=== PATIENT | female | born 1980 | race Caucasian/White ===

== ENCOUNTER 2018-07-19 17:20 | Emergency (ER) | payer BC, SELFPAY ==
[~2018-07-19 17:20] MED LIST: ISOVUE-370 76%-LOCM 1 ML ONE
[2018-07-19] MEDS ORDERED: Ketorolac Tromethamine 30 MG/ML VIAL ONE (17:38)
[2018-07-19] MEDS ORDERED: Lorazepam 2 MG/ML VIAL ONE (17:38)
[2018-07-19 17:40] LABS: #Basophils 0.1 thou/uL (0.0-0.2); #Eosinphils 0.4 thou/uL (0.0-0.7); #Lymphocytes 5.5 thou/uL (1.20-3.40); #Monocytes 0.6 thou/uL (0.11-0.59); #Neutrophils 5.3 thou/uL (1.40-6.50); %Basophils 0.6 % (0.0-1.0); %Lymphocytes 46.2 % (21.0-51.0); %Monocytes 5.4 % (0.0-10.0); %Neutrophils 44.8 % (42.0-75.0); Hemoglobin 13.8 g/dL (12.0-16.0); Mean Corpuscular HGB CONC 34.5 g/dL (32.0-36.0); Mean Corpuscular Hemoglobin 32.3 pg (27.0-31.0); Mean Corpuscular Volume 93.7 fL (78.0-98.0); Mean Platelet Volume 8.2 fL (7.4-10.4); Platelet Count 295 thou/uL (130-400); RBC Distribution Width 12.2 % (11.5-14.5); Red Blood Cell (RBC) Count 4.29 mill/uL (4.20-5.40); White Blood Cell (WBC) Count 11.9 thou/uL (4.8-10.8)
[2018-07-19 18:03] LABS: ALT (SGPT) 69 U/L (8-55); AST (SGOT) 45 U/L (5-34); Albumin 4.6 g/dL (3.5-5.0); Alkaline Phosphatase 76 U/L (40-150); Anion Gap 14 mmol/L (10-20); BUN (Urea Nitrogen) 7 mg/dL (7.0-18.7); Bilirubin, Total 0.4 mg/dL (0.2-1.2); Calc. Creatinine Clearance 0 mL/min (70-130); Calcium 9.5 mg/dL (7.8-10.44); Carbon Dioxide 25 mmol/L (22-29); Chloride 102 mmol/L (98-107); Estimated GFR-MDRD 82; Glucose 86 mg/dL (70-105); Lipase 27 U/L (8-78); Potassium 3.8 mmol/L (3.5-5.1); Protein, Total 7.6 g/dL (6.0-8.3); Sodium 137 mmol/L (136-145)
[2018-07-19 18:06] LABS: Troponin I Less than 0.010 ng/mL (< 0.028)
--- NOTE | 2018-07-19 18:55 | RAD ---
AP VIEW CHEST: 07/19/2018 HISTORY: Chest pain. FINDINGS: AP view chest demonstrates the lungs to be well aerated. No evidence of active intrathoracic disease is seen. No evidence of effusions, pneumonia, or pneumothorax is seen. IMPRESSION: Unremarkable anterior-posterior view chest. POS: [facility]
--- NOTE | 2018-07-19 19:27 | CT ---
CT AORTIC DISSECTION PROTOCOL: HISTORY: This is a 37-year-old who presents with a history of acute chest pain, left side, for 45 minutes, ass ociated with left arm movement. TECHNIQUE: A contrast enhanced CTA of the thoracic and abdominal aorta were obtained, and 2D and 3D reconstructe d images were performed on an independent 3D work station. FINDINGS: Images demonstrate the lung parenchyma to be unremarkable. The aortic arch is unremarkable. The ascending and descending thoracic aorta is unremarkable. The a bdominal aorta is unremarkable. The right and left subclavian arteries are patent. No evidence of lung parenchymal lesions seen. No evidence of mediastinal, hilar, or axillary lymphadenopathy is seen. Hepatic steatosis is present. The spleen, pancreas, and gallbladder are unremarkable. The adrenal g lands are unremarkable. The kidneys are within normal limits. The SMA, celiac, and renal arteries are patent. IMPRESSION: Unremarkable CTA aorta. POS: [facility]
[2018-07-19 19:32] LABS: Bilirubin Negative (Negative); Blood, Urine Negative (Negative); Clarity CLEAR (Clear); Glucose, Urine (Dipstick) Negative (Negative); Leukocyte Negative (Negative); Nitrite Negative (Negative); Protein, Urine (Dipstick) Negative (Neg-Trace); Specific Gravity, Urine 1.037 (1.002-1.036); Urobilinogen 0.2 mg/dL (0.2-1.0)
[2018-07-19 19:43] LABS: Amphetamine Not Detected (NotDetected); Barbiturates Screen Not Detected (NotDetected); Benzodiazepine Screen Not Detected (NotDetected); Cocaine Metabolite Screen Not Detected (NotDetected); Medtox Control Line Valid? VALID (VALID); Medtox Reader # READER 4; Methadone Not Detected (NotDetected); Methamphetamine Not Detected (NotDetected); Opiate Screen Not Detected (NotDetected); Oxycodone Screen Not Detected (NotDetected); Phencyclidine (PCP) Not Detected (NotDetected); THC/Cannabinoid Screen Not Detected (NotDetected); Tricyclic Screen Not Detected (NotDetected)
[2018-07-19 19:43] LABS: Acetaminophen Less than 6.0 mcg/mL (10.0-30.0); Alcohol Less than 10 mg/dL (Less than 10); CK (CPK) 82 U/L (29-168); Salicylate Less than 8.0 mg/dL (15.0-30.0)
--- NOTE | 2018-07-24 11:46 | EKG ---
Test Reason : CHEST PAIN Blood Pressure : / mmHG Vent. Rate : 081 BPM Atrial Rate : 081 BPM P-R Int : 124 ms QRS Dur : 090 ms QT Int : 376 ms P-R-T Axes : 020 021 032 degrees QTc Int : 436 ms Normal sinus rhythm Normal ECG Confirmed by LAURENT LEE DO ([id number]), editorial clerk MURALI TUCKER ([id number]) on 07/24/2018 11:46:35 AM Referred By: JALEESA LEE Confirmed By:LAURENT LEE DO
== END 2018-07-19 20:15 | disposition home or self-care (01) ==
LOC: ERS 17:20
DX: R07.89 Other chest pain (principal); J45.909 Unspecified asthma, uncomplicated; I10 Essential (primary) hypertension; F41.9 Anxiety disorder, unspecified; F32.9 Major depressive disorder, single episode, unspecified; Z87.891 Personal history of nicotine dependence; Z79.899 Other long term (current) drug therapy
CPT/HCPCS: 71045; 71275; 80053; 80306; 80307; 81003; 82553; 83690; 83880; 84484; 85025; 93005; 96361; 96374; 96375; J1885; J2060

== ENCOUNTER 2018-12-03 09:59 | Emergency (ER) | payer OTHER ==
[2018-12-03 10:41] LABS: Bilirubin Negative (Negative); Blood, Urine Small (Negative); Clarity CLOUDY (Clear); Glucose, Urine (Dipstick) Negative (Negative); Leukocyte Negative (Negative); Nitrite Negative (Negative); Protein, Urine (Dipstick) Negative (Neg-Trace); Specific Gravity, Urine 1.013 (1.002-1.036); Urobilinogen 0.2 mg/dL (0.2-1.0)
[2018-12-03 10:43] LABS: Bacteria/HPF Rare-Few HPF (None Seen); Hyaline Casts/LPF 4-6 HYALINE CAST LPF (0-3 Hyaline); Pathc Cast-AUWi Flag 1.74 (0-2.49)
[2018-12-03 11:05] LABS: #Basophils 0.1 thou/uL (0.0-0.2); #Eosinphils 0.1 thou/uL (0.0-0.7); #Lymphocytes 3.9 thou/uL (1.20-3.40); #Monocytes 0.6 thou/uL (0.11-0.59); #Neutrophils 8.2 thou/uL (1.40-6.50); %Basophils 0.6 % (0.0-1.0); %Eosinophils 0.6 % (0.0-10.0); %Lymphocytes 30.1 % (21.0-51.0); %Neutrophils 63.7 % (42.0-75.0); Hemoglobin 15.3 g/dL (12.0-16.0); Mean Corpuscular HGB CONC 33.7 g/dL (32.0-36.0); Mean Corpuscular Hemoglobin 31.9 pg (27.0-31.0); Mean Corpuscular Volume 94.8 fL (78.0-98.0); Mean Platelet Volume 7.9 fL (7.4-10.4); Platelet Count 332 thou/uL (130-400); RBC Distribution Width 12.1 % (11.5-14.5); White Blood Cell (WBC) Count 12.8 thou/uL (4.8-10.8)
[2018-12-03] MEDS ORDERED: Morphine 2 MG/ML SYRINGE ONE (11:05)
[2018-12-03] MEDS ORDERED: Promethazine HCl 25 MG/ML VIAL ONE (11:05)
[2018-12-03 11:29] LABS: ALT (SGPT) 82 U/L (8-55); AST (SGOT) 65 U/L (5-34); Albumin 4.8 g/dL (3.5-5.0); Alkaline Phosphatase 79 U/L (40-150); Anion Gap 13 mmol/L (10-20); BUN (Urea Nitrogen) 8 mg/dL (7.0-18.7); Bilirubin, Total 0.9 mg/dL (0.2-1.2); Calc. Creatinine Clearance 0 mL/min (70-130); Carbon Dioxide 25 mmol/L (22-29); Chloride 102 mmol/L (98-107); Estimated GFR-MDRD 77; Glucose 108 mg/dL (70-105); Lipase 24 U/L (8-78); Potassium 4.1 mmol/L (3.5-5.1); Protein, Total 7.8 g/dL (6.0-8.3); Sodium 136 mmol/L (136-145)
--- NOTE | 2018-12-03 12:02 | CT ---
CT ABDOMEN AND PELVIS WITH IV CONTRAST: Date: 12/03/18 HISTORY: Right lower quadrant pain. COMPARISON: 07/19/18. FINDINGS: Lung bases are clear. Liver, spleen, kidneys, adrenal glands, and pancreas have a normal CT appearanc e. Appendix is not inflamed. No free air or free fluid. Urinary bladder is incompletely distended. IMPRESSION: No significant abnormalities are demonstrated. POS: [facility]
[2018-12-03] MEDS ORDERED: Ondansetron PF 4 MG/2 ML Vial ONE (12:26)
[2018-12-03] MEDS ORDERED: Dicyclomine 20 MG TAB ONE (12:26)
[2018-12-03] MEDS ORDERED: Pantoprazole 40 MG VIAL ONE (12:26)
[2018-12-03] MEDS ORDERED: ISOVUE-370 76%-LOCM 1 ML ONE (14:49)
== END 2018-12-03 12:50 | disposition home or self-care (01) ==
LOC: ERS 09:59
DX: K52.9 Noninfective gastroenteritis and colitis, unspecified (principal); I10 Essential (primary) hypertension; J45.909 Unspecified asthma, uncomplicated; F41.9 Anxiety disorder, unspecified; F32.9 Major depressive disorder, single episode, unspecified; Z87.891 Personal history of nicotine dependence; Z79.899 Other long term (current) drug therapy
CPT/HCPCS: 74177; 80053; 81003; 81015; 83690; 85025; 96365; 96366; 96375; C9113; J2270; J2405; J2550; Q9966

== ENCOUNTER 2018-12-08 07:39 | Emergency (ER) | payer OTHER ==
[2018-12-08 08:05] LABS: #Basophils 0.1 thou/uL (0.0-0.2); #Eosinphils 0.1 thou/uL (0.0-0.7); #Lymphocytes 4.2 thou/uL (1.20-3.40); #Monocytes 0.7 thou/uL (0.11-0.59); #Neutrophils 5.8 thou/uL (1.40-6.50); %Basophils 1.1 % (0.0-1.0); %Eosinophils 1.3 % (0.0-10.0); %Lymphocytes 38.3 % (21.0-51.0); %Monocytes 6.1 % (0.0-10.0); %Neutrophils 53.2 % (42.0-75.0); Hemoglobin 14.7 g/dL (12.0-16.0); Mean Corpuscular HGB CONC 33.2 g/dL (32.0-36.0); Mean Corpuscular Hemoglobin 31.8 pg (27.0-31.0); Mean Corpuscular Volume 95.6 fL (78.0-98.0); Mean Platelet Volume 7.9 fL (7.4-10.4); Platelet Count 347 thou/uL (130-400); RBC Distribution Width 12.2 % (11.5-14.5); Red Blood Cell (RBC) Count 4.62 mill/uL (4.20-5.40); White Blood Cell (WBC) Count 10.8 thou/uL (4.8-10.8)
[2018-12-08 08:24] LABS: ALT (SGPT) 89 U/L (8-55); AST (SGOT) 58 U/L (5-34); Albumin 4.5 g/dL (3.5-5.0); Alkaline Phosphatase 71 U/L (40-150); Anion Gap 13 mmol/L (10-20); BUN (Urea Nitrogen) 4 mg/dL (7.0-18.7); Bilirubin, Total 0.6 mg/dL (0.2-1.2); Calc. Creatinine Clearance 0 mL/min (70-130); Calcium 9.7 mg/dL (7.8-10.44); Carbon Dioxide 27 mmol/L (22-29); Chloride 102 mmol/L (98-107); Estimated GFR-MDRD 71; Globulin 2.6 g/dL (2.4-3.5); Glucose 108 mg/dL (70-105); Potassium 3.7 mmol/L (3.5-5.1); Protein, Total 7.1 g/dL (6.0-8.3); Sodium 138 mmol/L (136-145)
[2018-12-08 08:24] LABS: Bilirubin Negative (Negative); Blood, Urine Negative (Negative); Clarity CLOUDY (Clear); Glucose, Urine (Dipstick) Negative (Negative); Leukocyte Negative (Negative); Nitrite Negative (Negative); Protein, Urine (Dipstick) Negative (Neg-Trace); Specific Gravity, Urine 1.013 (1.002-1.036); Urobilinogen 0.2 mg/dL (0.2-1.0)
[2018-12-08 08:25] LABS: Pregnancy Test - Urine (BHCG) Negative (Negative); Pregu Control Background? CLEAR/WHITE (CLR/WHITE); Pregu Control Bar Appear? YES (CONTROL BAR); Specific Gravity 1.013 (1.002-1.036)
[2018-12-08] MEDS ORDERED: Ketorolac Tromethamine 30 MG/ML VIAL ONE (09:42)
--- NOTE | 2018-12-08 10:45 | ULT ---
ULTRASOUND PELVIC ULTRASOUND TRANSVAGINAL DOPPLER DUPLEX: DATE: 12-08-18 HISTORY: 38-year-old female with right sided pelvic pain. TECHNIQUE: Transabdominal transducer used to evaluate intrapelvic contents using the urinary bladder as an acous tic window. Endovaginal transducer used to visualize intrapelvic contents in greater detail. Color fl ow Doppler and Pulsed Doppler spectral waveform analysis of ovaries. FINDINGS: The uterus is surgically absent. The right ovary measures approximately 2.5 x 1.5 x 2 cm. The left ovary measures approximately 3 x 1.5 x 1.5 cm. There are multiple prominent follicles in both ovaries. The larger follicles are slightly larger than 1 cm. Blood flow is demonstrated in both ovaries by doppler. No significant amounts= of free fluid in cul-de-sac. IMPRESSION: 1. Status post hysterectomy. 2. Prominent bilateral ovarian follicles. 3. Otherwise unremarkable. MEGHANA Hurtado POS: [facility]
== END 2018-12-08 11:10 | disposition home or self-care (01) ==
LOC: ERS 07:39
DX: K76.0 Fatty (change of) liver, not elsewhere classified (principal); I10 Essential (primary) hypertension; J45.909 Unspecified asthma, uncomplicated; F41.9 Anxiety disorder, unspecified; F32.9 Major depressive disorder, single episode, unspecified; Z87.891 Personal history of nicotine dependence; Z79.899 Other long term (current) drug therapy
CPT/HCPCS: 36415; 76856; 80053; 81003; 81025; 85025; 96374; J1885

== ENCOUNTER 2018-12-16 07:22 | Outpatient (CLI) | payer OTHER ==
--- NOTE | 2018-12-16 09:16 | ULT ---
RIGHT UPPER QUADRANT ULTRASOUND: INDICATION: Right upper quadrant abdominal pain. FINDINGS: There is increased echogenicity of the liver without focal lesion identified. No acute gallbladder p athology or biliary ductal dilatation. No ascites. IMPRESSION: 1. No acute gallbladder pathology. 2. Increased echogenicity of the liver which indicates hepatic steatosis. POS: [facility]
== END 2018-12-16 07:23 | disposition home or self-care (01) ==
LOC: ULT 07:22
PROVIDERS: ATTEND Family Medicine
DX: R10.11 Right upper quadrant pain (principal); K76.89 Other specified diseases of liver
CPT/HCPCS: 76705